=== PATIENT | female | born 1965 | race Caucasian/White ===

== ENCOUNTER 2023-02-10 20:03 | Emergency (ER) | payer OTHER, SELFPAY ==
[2023-02-10 20:07] VITALS: BP 159/94; PULSE 77; RESP 18; TEMP 36.6; O2SAT 98; BMI 27.4
[2023-02-10 20:47] VITALS: BP 142/73; PULSE 66; RESP 18; O2SAT 99
--- NOTE | 2023-02-10 20:47 | CT_ITS ---
The [address] [address] Patient Name: PHILOMENA SCHMID MRN: [id number] date: 1965 Sex: F Assigned Patient Location: ER Current Patient Location: ER Accession/Order Number: [id number] Exam Date: 02/10/2023 20:54 Report Date: 02/10/2023 21:28 At the request of: ARTIE VAUGHN Procedure: CT abdomen pelvis wo con CT ABDOMEN AND PELVIS WITHOUT IV CONTRAST HISTORY:Left lower quadrant pain COMPARISON: None. TECHNIQUE: Non-contrast imaging of the abdomen and pelvis was performed through the urinary tract. Study performed without intravenous or oral contrast to evaluate for urinary tract calculus. Contrast: IV contrast: None RESULT: Unenhanced imaging is limited for the evaluation of some renal and other intra-abdominal and pelvic pathology. Abdomen and pelvis: Liver: Unremarkable. Pancreas: Unremarkable. Biliary: No bile duct dilation. The gallbladder is unremarkable. Spleen: No splenomegaly. Adrenals: Normal. Kidneys: No calculus or hydronephrosis. Mesentery/peritoneum: No ascites. Adenopathy: No lymphadenopathy. Vasculature: No abdominal aortic aneurysm. Bowel: No wall thickening or dilation. Normal appendix. No diverticulosis. Pelvis: No mass or ascites. Urinary bladder is unremarkable. Bones and soft tissues: No acute abnormality. Lower Thorax: The lower thorax is unremarkable. CT/CT abdomen pelvis wo con IMPRESSION: No acute findings in the abdomen and pelvis. Electronically authenticated by: RAYA HOLLOWAY Date: 02/10/2023 21:28
--- NOTE | 2023-02-10 20:49 | ED.GENADUL1 ---
Documented by User: FABIO Baez 02/10/23 21:31 HPI - General Adult General Chief complaint: Abdominal Pain Stated complaint: POSS KIDNEY STONE Time Seen by Provider: 02/10/23 20:36 Source: patient Mode of arrival: walk-in Limitations: no limitations History of Present Illness HPI narrative: patient is a 57-year-old female presents to the Emergency Room for evaluation of left flank pain. Patient states she just finished dinner this evening when she developed sharp pain in the left flank that radiated to her left groin. Patient states at times the pain was 10/10 and now is slightly improved. She had nausea with this symptom. She has not been able to urinate since symptoms started but has had several small bowel movements. She denies any chest pain or shortness of breath. Patient denies any prior history of kidney stones. She does not report any history of Crohn's, colitis or diverticulitis. Location: Reports abdomen (left flank) Related Data Home Medications Medication Instructions Recorded Confirmed hydrochlorothiazide 25 mg tablet mg 02/10/23 levothyroxine 75 mcg tablet mcg 02/10/23 Previous Rx's Medication Instructions Recorded dicyclomine 20 mg tablet 20 mg PO QID PRN abdominal pain 02/10/23 #10 tabs sulfamethoxazole 800 1 tab PO Q12H 7 days #14 tabs 02/10/23 mg-trimethoprim 160 mg tablet (Bactrim DS) Allergies Allergy/AdvReac Type Severity Reaction Status Date / Time No Known Drug Allergies Allergy Verified 02/10/23 20:12 Review of Systems ROS Constitutional Denies: fever or chills Eyes Denies: change in vision Ears, nose, mouth, and throat Denies: neck pain Cardiovascular Denies: chest pain Respiratory Denies: shortness of breath Gastrointestinal Reports: abdominal pain and nausea Genitourinary Denies: painful urination or urinary frequency Musculoskeletal Denies: back pain or neck pain Integumentary/Breast Denies: rash Neurological Denies: headache Psychiatric Denies: anxiety Exam Narrative Exam Narrative: Nurses notes and vital signs reviewed and patient is not hypoxic. General: The patient appears mildly uncomfortable, but able to keep conversation at the bedside. Skin: Warm, dry, no pallor noted.no evidence of zoster-like rash Head: Normocephalic, atraumatic Neck: Supple, trachea mid-line, no tenderness, no lymphadenopathy Eye: Pupils are equal, round and reactive to light, EOMI Ears, Nose, Mouth, and Throat: external inspection unremarkable Cardiovascular: Regular Rate and Rhythm Respiratory: Patient is in no distress, no accessory muscle use, lungs are clear to auscultation, no wheezing, rales or rhonchi. Chest Wall: no tenderness Back: non-tender, mild left CVA tenderness Musculoskeletal: normal ROM, no tenderness, no swelling GI: Normal bowel sounds, no tenderness to palpation, no masses appreciated. No rebound, guarding, or rigidity noted.abdomen nonsurgical Neurological: A&O x4 Psychiatric: Cooperative Constitutional Vital Signs, click to edit/add: Last Vital Signs Temp 98 F 02/10/23 20:07 Pulse 78 02/10/23 23:01 Resp 14 02/10/23 23:01 BP 126/66 H 02/10/23 23:01 Pulse Ox 98 02/10/23 23:00 O2 Del Method Room Air 02/10/23 23:00 Course Vital Signs Vital signs: Vital Signs Temperature 98 F 02/10/23 20:07 Pulse Rate 77 02/10/23 20:07 Respiratory Rate 18 02/10/23 20:07 Blood Pressure 159/94 H 02/10/23 20:07 Pulse Oximetry 98 02/10/23 20:07 Oxygen Delivery Method Room Air 02/10/23 20:07 Temperature 98 F 02/10/23 20:07 Pulse Rate 78 02/10/23 23:01 Respiratory Rate 14 02/10/23 23:01 Blood Pressure 126/66 H 02/10/23 23:01 Pulse Oximetry 98 02/10/23 23:00 Oxygen Delivery Method Room Air 02/10/23 23:00 Medical Decision Making MDM Narrative Medical decision making narrative: patient presents with abrupt onset left flank pain concerning for possible ureterolithiasis. Positive flank tenderness and CVA tenderness on the left. Patient notes pain slightly improving from car ride over, she is given Toradol 30 mg IV and Zofran 4 mg IV. Lab Data Labs: Lab Results 02/10/23 02/10/23 Range/Units 20:25 21:27 WBC 5.2 (4.0-11.0) 10^3/uL RBC 4.39 (4.20-5.40) 10^6/uL Hgb 13.1 (12.0-16.0) g/dL Hct 38.8 (36.0-48.0) % MCV 88.4 (81.0-99.0) fL MCH 29.8 (26.7-34.0) pg MCHC 33.8 (29.9-35.2) g/dL RDW 12.8 (11.0-15.0) % Plt Count 228 (150-450) 10^3/uL MPV 9.2 L (9.5-13.5) fL Neut % (Auto) 66.1 (43.0-75.0) % Lymph % (Auto) 23.6 (20.5-60.0) % [place] % (Auto) 5.6 (1.7-12.0) % Eos % (Auto) 3.3 (0.9-7.0) % Baso % (Auto) 0.8 (0.2-2.0) % Neut # (Auto) 3.4 (1.4-6.5) 10^3/uL Lymph # (Auto) 1.2 (1.2-3.8) 10^3/uL [place] # (Auto) 0.3 (0.3-0.8) 10^3/uL Eos # (Auto) 0.2 (0.0-0.7) 10^3/uL Baso # (Auto) 0.0 (0.0-0.1) 10^3/uL Abs Immat Gran (auto) 0.03 (0.00-0.03) 10^3/uL Imm/Tot Granulo (auto) 0.6 H (0.0-0.5) % Sodium 142 (136-145) mmol/L Potassium 3.2 L (3.5-5.1) mmol/L Chloride 105 (98-107) mmol/L Carbon Dioxide 27.5 (21.0-32.0) mmol/L Anion Gap 12.7 BUN 23.0 H (7.0-18.0) mg/dL Creatinine 1.42 H (0.55-1.02) mg/dL Est GFR ( Amer) 46 L (>=60) Est GFR (Non-Af Amer) 38 L (>=60) BUN/Creatinine Ratio 16.2 Glucose 139 H (74-106) mg/dL Calcium 9.4 (8.5-10.1) mg/dL Total Bilirubin 0.5 (0.2-1.0) mg/dL AST 23 (15-37) U/L ALT 35 (14-59) U/L Alkaline Phosphatase 88 (46-116) U/L Total Protein 7.7 (6.4-8.2) g/dL Albumin 3.9 (3.4-5.0) g/dL Globulin 3.8 g/dL Albumin/Globulin Ratio 1.0 Lipase 78.0 (73.0-393.0) U/L Urine Color Dk. yellow (YELLOW) Urine Clarity Clear (CLEAR) Urine pH 7.0 (5.0-9.0) Ur Specific [place] 1.020 (1.005-1.025) Urine Protein 100 A (NEG/TRACE) mg/dL Urine Glucose (UA) Negative (NEGATIVE) mg/dL Urine Ketones Trace A (NEGATIVE) mg/dL Urine Occult Blood Large A (NEGATIVE) Urine Nitrite Negative (NEGATIVE) Urine Bilirubin Small A (NEGATIVE) Urine Urobilinogen 4.0 A (0.2-1.0) EU/dL Ur Leukocyte Esterase Trace A (NEGATIVE) Urine RBC 50-75 A (0-2) #/HPF Urine WBC 0-2 A (NONE SEEN) #/HPF Ur Squamous Epith Cells Few A (NONE/RARE) #/LPF Urine Crystals None seen (None Seen) #/HPF Urine Bacteria None seen (NONE SEEN) #/HPF Urine Casts None seen (NONE SEEN) #/LPF Urine Mucus None seen (NONE SEEN) Ur Culture Indicated? No Discharge Plan Discharge Chief Complaint: Abdominal Pain Clinical Impression: Acute left flank pain, Acute kidney injury Patient Disposition: Home, Self-Care Time of Disposition Decision: 22:32 Condition: Good Mode of Transportation: Private Vehicle Prescriptions / Home Meds: New sulfamethoxazole-trimethoprim [Bactrim DS] 800-160 mg tablet 1 tab PO Q12H 7 Days Qty: 14 0RF dicyclomine 20 mg tablet 20 mg PO QID PRN (Reason: abdominal pain) Qty: 10 0RF No Action levothyroxine 75 mcg tablet hydrochlorothiazide 25 mg tablet Instructions: Acute Kidney Injury (DC), Flank Pain (ED) Additional Instructions: Follow up with your family and Urologist DR Carlin office # [phone] Stand Alone Forms: Portal Instructions Referrals: Physician,Non-Staff, [Primary Care Provider] - 1 week Mike Carlin MD [Physician] - 1 week Discharge Date/Time: 02/10/23 23:02 Documented by User: Rufina Weston MD 02/11/23 01:16 HPI - General Adult General Chief complaint: Abdominal Pain Stated complaint: POSS KIDNEY STONE Time Seen by Provider: 02/10/23 20:36 Related Data Home Medications Medication Instructions Recorded Confirmed hydrochlorothiazide 25 mg tablet mg 02/10/23 levothyroxine 75 mcg tablet mcg 02/10/23 Previous Rx's Medication Instructions Recorded dicyclomine 20 mg tablet 20 mg PO QID PRN abdominal pain 02/10/23 #10 tabs sulfamethoxazole 800 1 tab PO Q12H 7 days #14 tabs 02/10/23 mg-trimethoprim 160 mg tablet (Bactrim DS) Allergies Allergy/AdvReac Type Severity Reaction Status Date / Time No Known Drug Allergies Allergy Verified 02/10/23 20:12 Exam Constitutional Vital Signs, click to edit/add: Last Vital Signs Temp 98 F 02/10/23 20:07 Pulse 78 02/10/23 23:01 Resp 14 02/10/23 23:01 BP 126/66 H 02/10/23 23:01 Pulse Ox 98 02/10/23 23:00 O2 Del Method Room Air 02/10/23 23:00 Course Vital Signs Vital signs: Vital Signs Temperature 98 F 02/10/23 20:07 Pulse Rate 77 02/10/23 20:07 Respiratory Rate 18 02/10/23 20:07 Blood Pressure 159/94 H 02/10/23 20:07 Pulse Oximetry 98 02/10/23 20:07 Oxygen Delivery Method Room Air 02/10/23 20:07 Temperature 98 F 02/10/23 20:07 Pulse Rate 78 02/10/23 23:01 Respiratory Rate 14 02/10/23 23:01 Blood Pressure 126/66 H 02/10/23 23:01 Pulse Oximetry 98 02/10/23 23:00 Oxygen Delivery Method Room Air 02/10/23 23:00 Medical Decision Making [facility] Narrative Medical decision making narrative: patient presents with abrupt onset left flank pain concerning for possible ureterolithiasis. Positive flank tenderness and CVA tenderness on the left. Patient notes pain slightly improving from car ride over, she is given Toradol 30 mg IV and Zofran [address] Weston : pt is feeling so much better after initial treatment her blood work-up showed some mild leukocytosis and acute kidney injury she was started in the ER on hydration and her urine will be covered with ciprofloxacin for possible UTI The patient CT abdomen pelvis showed no acute pathology and the patient have a lot of blood in her urine which could have passed a kidney stone The patient right now will be discharged home with supportive care with Bentyl for the pain as well as ciprofloxacin and she will be instructed to come back in case of any symptoms or concerns and monitoring her symptoms She also was instructed that she need to follow-up with her primary care doctor for acute kidney injury the patient is to follow up with primary care physician in next 2-3 days or to return to the emergency department should any of the signs or symptoms worsen or new symptoms develop. The patient agrees with the following Diagnosis and Treatment plan and the patient will be discharged home. Lab Data Labs: Lab Results 02/10/23 02/10/23 Range/Units 20:25 21:27 WBC 5.2 (4.0-11.0) 10^3/uL RBC 4.39 (4.20-5.40) 10^6/uL Hgb 13.1 (12.0-16.0) g/dL Hct 38.8 (36.0-48.0) % MCV 88.4 (81.0-99.0) fL MCH 29.8 (26.7-34.0) pg MCHC 33.8 (29.9-35.2) g/dL RDW 12.8 (11.0-15.0) % Plt Count 228 (150-450) 10^3/uL MPV 9.2 L (9.5-13.5) fL Neut % (Auto) 66.1 (43.0-75.0) % Lymph % (Auto) 23.6 (20.5-60.0) % [place] % (Auto) 5.6 (1.7-12.0) % Eos % (Auto) 3.3 (0.9-7.0) % Baso % (Auto) 0.8 (0.2-2.0) % Neut # (Auto) 3.4 (1.4-6.5) 10^3/uL Lymph # (Auto) 1.2 (1.2-3.8) 10^3/uL [place] # (Auto) 0.3 (0.3-0.8) 10^3/uL Eos # (Auto) 0.2 (0.0-0.7) 10^3/uL Baso # (Auto) 0.0 (0.0-0.1) 10^3/uL Abs Immat Gran (auto) 0.03 (0.00-0.03) 10^3/uL Imm/Tot Granulo (auto) 0.6 H (0.0-0.5) % Sodium 142 (136-145) mmol/L Potassium 3.2 L (3.5-5.1) mmol/L Chloride 105 (98-107) mmol/L Carbon Dioxide 27.5 (21.0-32.0) mmol/L Anion Gap 12.7 BUN 23.0 H (7.0-18.0) mg/dL Creatinine 1.42 H (0.55-1.02) mg/dL Est GFR ( Amer) 46 L (>=60) Est GFR (Non-Af Amer) 38 L (>=60) BUN/Creatinine Ratio 16.2 Glucose 139 H (74-106) mg/dL Calcium 9.4 (8.5-10.1) mg/dL Total Bilirubin 0.5 (0.2-1.0) mg/dL AST 23 (15-37) U/L ALT 35 (14-59) U/L Alkaline Phosphatase 88 (46-116) U/L Total Protein 7.7 (6.4-8.2) g/dL Albumin 3.9 (3.4-5.0) g/dL Globulin 3.8 g/dL Albumin/Globulin Ratio 1.0 Lipase 78.0 (73.0-393.0) U/L Urine Color Dk. yellow (YELLOW) Urine Clarity Clear (CLEAR) Urine pH 7.0 (5.0-9.0) Ur Specific [place] 1.020 (1.005-1.025) Urine Protein 100 A (NEG/TRACE) mg/dL Urine Glucose (UA) Negative (NEGATIVE) mg/dL Urine Ketones Trace A (NEGATIVE) mg/dL Urine Occult Blood Large A (NEGATIVE) Urine Nitrite Negative (NEGATIVE) Urine Bilirubin Small A (NEGATIVE) Urine Urobilinogen 4.0 A (0.2-1.0) EU/dL Ur Leukocyte Esterase Trace A (NEGATIVE) Urine RBC 50-75 A (0-2) #/HPF Urine WBC 0-2 A (NONE SEEN) #/HPF Ur Squamous Epith Cells Few A (NONE/RARE) #/LPF Urine Crystals None seen (None Seen) #/HPF Urine Bacteria None seen (NONE SEEN) #/HPF Urine Casts None seen (NONE SEEN) #/LPF Urine Mucus None seen (NONE SEEN) Ur Culture Indicated? No Discharge Plan Discharge Chief Complaint: Abdominal Pain Clinical Impression: Acute left flank pain, Acute kidney injury Patient Disposition: Home, Self-Care Time of Disposition Decision: 22:32 Condition: Good Mode of Transportation: Private Vehicle Prescriptions / Home Meds: New sulfamethoxazole-trimethoprim [Bactrim DS] 800-160 mg tablet 1 tab PO Q12H 7 Days Qty: 14 0RF dicyclomine 20 mg tablet 20 mg PO QID PRN (Reason: abdominal pain) Qty: 10 0RF No Action levothyroxine 75 mcg tablet hydrochlorothiazide 25 mg tablet Instructions: Acute Kidney Injury (DC), Flank Pain (ED) Additional Instructions: Follow up with your family and Urologist DR Carlin office # [phone] Stand Alone Forms: Portal Instructions Referrals: Physician,Non-Staff, [Primary Care Provider] - 1 week Mike Carlin MD [Physician] - 1 week Discharge Date/Time: 02/10/23 23:02
[2023-02-10 20:55] LABS: Basophils Percent Auto 0.8 % (0.2-2.0); Eosinophils Absolute Auto 0.2 10^3/uL (0.0-0.7); Eosinophils Percent Auto 3.3 % (0.9-7.0); Hematocrit 38.8 % (36.0-48.0); Hemoglobin 13.1 g/dL (12.0-16.0); Immature Granulocytes Abs Auto 0.03 10^3/uL (0.00-0.03); Immature Granulocytes Pct Auto 0.6 % (0.0-0.5); Lymphocytes Absolute Auto 1.2 10^3/uL (1.2-3.8); Lymphocytes Percent Auto 23.6 % (20.5-60.0); Mean Corpuscular HGB Conc 33.8 g/dL (29.9-35.2); Mean Corpuscular Hemoglobin 29.8 pg (26.7-34.0); Mean Corpuscular Volume 88.4 fL (81.0-99.0); Mean Platelet Volume 9.2 fL (9.5-13.5); Monocytes Absolute Auto 0.3 10^3/uL (0.3-0.8); Monocytes Percent Auto 5.6 % (1.7-12.0); Neutrophils Absolute Auto 3.4 10^3/uL (1.4-6.5); Neutrophils Percent Auto 66.1 % (43.0-75.0); Platelet Count 228 10^3/uL (150-450); Red Blood Count 4.39 10^6/uL (4.20-5.40); Red Cell Distribution Width 12.8 % (11.0-15.0); White Blood Count 5.2 10^3/uL (4.0-11.0)
[2023-02-10 21:15] LABS: Alanine Aminotransferase 35 U/L (14-59); Albumin Level 3.9 g/dL (3.4-5.0); Alkaline Phosphatase 88 U/L (46-116); Anion Gap 12.7; Aspartate Amino Transferase 23 U/L (15-37); BUN Creatinine Ratio 16.2; Bilirubin Total 0.5 mg/dL (0.2-1.0); Calcium 9.4 mg/dL (8.5-10.1); Carbon Dioxide 27.5 mmol/L (21.0-32.0); Chloride 105 mmol/L (98-107); Estimated GFR (African America 46 (>=60); Estimated GFR (Non-African Ame 38 (>=60); Globulin 3.8 g/dL; Glucose 139 mg/dL (74-106); Potassium 3.2 mmol/L (3.5-5.1); Sodium 142 mmol/L (136-145); Total Protein 7.7 g/dL (6.4-8.2)
[2023-02-10] MEDS: 0.9 % SODIUM CHLORIDE 1,000 ML 999 ML IV (21:25)
[2023-02-10] MEDS: LACTATED RINGER'S SOLUTION 1,000 ML 50 ML IV (21:25)
[2023-02-10] MEDS: KETOROLAC TROMETHAMINE 30 MG/ML VIAL IVP (21:25)
[2023-02-10] MEDS: ONDANSETRON PF 4 MG/2 ML VIAL IV (21:26)
[2023-02-10 21:48] LABS: Bilirubin Urine SMALL (NEGATIVE); Blood Urine LARGE (NEGATIVE); Clarity Urine CLEAR (CLEAR); Color Urine DK. YELLOW (YELLOW); Glucose Urine UA NEGATIVE (NEGATIVE); Ketones Urine TRACE mg/dL (NEGATIVE); Leukocyte Esterase Urine TRACE (NEGATIVE); Nitrite Urine NEGATIVE (NEGATIVE); Protein Urine 100 mg/dL (NEG/TRACE)
[2023-02-10 21:50] LABS: Urine Microscopic Indicated YES
[2023-02-10 22:09] LABS: Bacteria Urine NONE SEEN #/HPF (NONE SEEN); Cast Seen? NONE SEEN #/LPF (NONE SEEN); Crystals Seen? None Seen #/HPF (None Seen); Mucus Urine NONE SEEN (NONE SEEN); RBC Urine 50-75 #/HPF (0-2); Squamous Epithelial Cell Urine FEW #/LPF (NONE/RARE); Urine Culture Indicated NO; WBC Urine 0-2 #/HPF (NONE SEEN)
[2023-02-10] MEDS: SULFAMETHOXAZOLE/TRIMETHOPRIM 800-160 MG TABLET 1 TAB PO (22:53)
--- NOTE | 2023-02-10 22:59 | PC.NURSE ---
d/c instructions complete, pt verbalized understanding. prescriptions sent tp pt's pharmacy and denies needs at time of d/c. told to return for any problems or concerns
[2023-02-10 23:00] VITALS: O2SAT 98
[2023-02-10 23:01] VITALS: BP 126/66; PULSE 78; RESP 14
== END 2023-02-10 23:02 | disposition home or self-care (01) ==
PROVIDERS: Personal Emergency Response Attendant; Emergency Provider Emergency Medicine; Family Provider Family Medicine
DX: R10.9 Unspecified abdominal pain (principal); N17.9 Acute kidney failure, unspecified; Z79.899 Other long term (current) drug therapy; Z79.890 Hormone replacement therapy
CPT/HCPCS: 36415; 74176; 80053; 81003; 81015; 83690; 85025; 96374; 96375; 99285